=== PATIENT | female | born 1975 ===

== ENCOUNTER → 2021-10-17 | Outpatient (CLI) | payer OTHER | LOC: LBRF 01:36 | DX: Z53.9 Procedure and treatment not carried out, unspecified reason (principal) | CPT/HCPCS: G0480 ==

== ENCOUNTER 2021-12-21 21:46 | Emergency (ER) | payer OTHER ==
[2021-12-21 22:34] LABS: HEMOGLOBIN 12.9 gm/dl (12.3-15.3); RED BLOOD COUNT 3.83 M/UL (4.00-5.10); WHITE BLOOD COUNT 9.5 K/UL (4.5-11.0)
[2021-12-21 22:49] LABS: BUN/CREATININE RATIO 16 (0-10)
== END 2021-12-22 02:01 ==
LOC: ER1 21:46
PROVIDERS: Family Medicine
DX: R56.9 Unspecified convulsions (principal); R51.9 Headache, unspecified
CPT/HCPCS: 70450; 80053; 81001; 83690; 83735; 84439; 84443; 84703; 85025; 93005; 96374; 99285; G0480; J1953

== ENCOUNTER 2022-03-05 20:56 | Emergency (ER) | payer OTHER ==
[~2022-03-05] VITALS: Ht 167.6 cm; Wt 81.6 kg
[2022-03-05 21:51] LABS: HEMOGLOBIN 13.1 gm/dl (12.3-15.3); RED BLOOD COUNT 3.89 M/UL (4.00-5.10); WHITE BLOOD COUNT 8.6 K/UL (4.5-11.0)
[2022-03-05 22:10] LABS: BUN/CREATININE RATIO 12 (0-10)
== END 2022-03-05 23:55 | disposition home or self-care (01) ==
LOC: ER1 20:56
PROVIDERS: Student in an Organized Health Care Education/Training Program
DX: G40.409 Other generalized epilepsy and epileptic syndromes, not intractable, without status epilepticus (principal); I10 Essential (primary) hypertension; Z79.899 Other long term (current) drug therapy
CPT/HCPCS: 70450; 70486; 72125; 80053; 80307; 81001; 83605; 85025; 96374; 96375; 99284; J0780; J1885; J1953